=== PATIENT | female | born 1940 | race Hispanic/Latino ===

== ENCOUNTER 2018-05-07 13:18 | Observation (INO) | payer MEDICARE ==
[~2018-05-07] VITALS: Ht 157.5 cm; Wt 82.1 kg
[2018-05-07] MEDS ORDERED: ONDANSETRON HCL INJ 2 MG/ML VIAL IV ONE (13:45)
[2018-05-07] MEDS ORDERED: NITROGLYCERIN 2% OINT 1 GM PKT TOP ONE (13:45)
[2018-05-07] MEDS ORDERED: ALBUTEROL SULF 0.083% NEB SOLN 3 ML NEB NEB STA (13:48)
[2018-05-07] MEDS ORDERED: ASPIRIN 325 MG TAB PO ONE (14:00)
[2018-05-07] MEDS ORDERED: FAMOTIDINE 20 MG TAB PO SCH (14:45)
[2018-05-07] MEDS ORDERED: ONDANSETRON HCL INJ 2 MG/ML VIAL IV PRN (14:45)
[2018-05-07] MEDS ORDERED: MORPHINE SULFATE 2 MG/ML SYR IV PRN (14:45)
[2018-05-07] MEDS ORDERED: ENOXAPARIN SODIUM INJ 100 MG/ML SYR SC ONE (14:45)
[2018-05-07] MEDS: METOPROLOL TARTRATE 25 MG TAB PO SCH (16:00)
[2018-05-07] MEDS ORDERED: DEXTROSE 50% SYRINGE 50 ML IV PRN (16:15)
[2018-05-07] MEDS: INSULIN REGULAR, HUMAN 100 UNIT/1 ML 3ML VIAL SQ SCH ×2 (16:30→20:40)
[2018-05-07 18:16] VITALS: BP 155/70
[2018-05-07 19:20] VITALS: BP 158/78
[2018-05-07 19:30] VITALS: BP 158/78
--- NOTE | 2018-05-07 19:57 | Diagnostic Imaging Report ---
Ventilation/perfusion lung scan Clinical Information: 78 F with chest pain an SOB Comparison: None Discussion: Xenon-133 gas 10 mCi was administered via inhalation. Dynamic images of the lungs in the posterior projection were obtained through single breath, equilibrium, and washout phases. Distribution of tracer activity is irregular throughout the lungs. There are no segmental ventilatory defects. Washout of tracer is diffusely delayed with no air trapping. Perfusion images of the lungs were obtained in multiple projections following intravenous administration of 6.5 mCi of Tc-99m MAA. Distribution of tracer is irregular throughout the lungs. The contours of the lungs are well demarcated. There are no segmental perfusion defects of any size. The cardiomediastinal silhouette is unremarkable. Impression: Scan findings represent a VERY LOW probability for acute pulmonary embolic disease based on the PIOPED II criteria. Scan evidence of diffuse parenchymal and/or obstructive lung disease. Signed by: Dr. Heidi Mcconnell M.D. on 05/07/2018 7:53 PM
[2018-05-07 20:01] VITALS: BP 158/78
[2018-05-07 20:48] LABS: CREATINE KINASE MB 0.3 ng/mL (0-5.0)
[2018-05-07] MEDS: SIMVASTATIN 40 MG TAB PO SCH (21:10)
[2018-05-08] VITALS (8 sets, daily range): BP systolic 125–175; BP diastolic 57–91
[2018-05-08] MEDS: METOPROLOL TARTRATE 25 MG TAB PO SCH ×2 (01:23→14:45)
[2018-05-08] MEDS ORDERED: GABAPENTIN400 MG PO (01:55)
[2018-05-08] MEDS ORDERED: FUROSEMIDE40 MG PO (01:55)
[2018-05-08] MEDS ORDERED: POTASSIUM CHLO20 ME1 PO (01:55)
[2018-05-08] MEDS ORDERED: GLYCOPYRROLATE1 MG PO (01:55)
[2018-05-08] MEDS ORDERED: LATANOPROST2.5 ML OP (01:55)
[2018-05-08] MEDS ORDERED: ATORVASTATIN CA20 MG PO (01:55)
[2018-05-08] MEDS ORDERED: PROAIR HFA INH8.5 GM (01:55)
[2018-05-08] MEDS ORDERED: ASPIR 8181 MG PO (01:55)
[2018-05-08] MEDS ORDERED: LISINOPRIL10 MG PO (01:55)
[2018-05-08] MEDS ORDERED: SYMBICORT 80-10.2 GM INH (01:55)
[2018-05-08] MEDS ORDERED: RANITIDINE HCL150 MG PO (01:55)
[2018-05-08] MEDS ORDERED: GLIMEPIRIDE2 MG PO (01:55)
[2018-05-08] MEDS ORDERED: CARVEDILOL12.5 MG PO (01:55)
[2018-05-08] MEDS ORDERED: CILOSTAZOL100 MG PO (01:55)
[2018-05-08] MEDS ORDERED: METFORMIN HCL500 MG PO (01:55)
[2018-05-08 04:43] LABS: CHOL/HDL RATIO 2.2 (3.0-3.6); CHOLESTEROL 95 MD/DL (0-199); CREATINE KINASE 60 IU/L (29-168); HDL CHOLESTEROL 44 MG/DL (40-60)
[2018-05-08 04:55] LABS: LDL CHOLESTEROL 41 MG/DL (60-130); TRIGLYCERIDES 51 MG/DL (0-149)
--- NOTE | 2018-05-08 06:50 | Diagnostic Imaging Report ---
EXAMINATION: CHEST SINGLE (PORTABLE) INDICATION: Shortness of breath COMPARISON: B every scan on 05/07/2018 FINDINGS: TUBES and LINES: None. LUNGS: Lungs are not well inflated. There are bibasilar atelectasis. There is mild prominence of the central pulmonary vasculature, consistent with pulmonary venous congestion. Interlobular septi thickening present. PLEURA: No pleural effusion or pneumothorax. HEART AND MEDIASTINUM: Cardiac size is moderately enlarged. The aorta is ectatic with atherosclerotic calcifications. BONES AND SOFT TISSUES: No acute osseous lesion. Soft tissues are unremarkable. UPPER ABDOMEN: No free air under the diaphragm. IMPRESSION: Findings are compatible with cardiogenic mild pulmonary edema. Signed by: Dr. Medhat Marin M.D. on 05/08/2018 6:47 AM
[2018-05-08] MEDS ORDERED: FLUTICASONE PRO16 GM NS (07:27)
[2018-05-08] MEDS: INSULIN REGULAR, HUMAN 100 UNIT/1 ML 3ML VIAL SQ SCH ×4 (07:30→20:44)
[2018-05-08] MEDS: ASPIRIN 325 MG TAB EC PO SCH (09:00)
[2018-05-08] MEDS ORDERED: ALBUTEROL SULFATE HFA 8GM INHALATION AEROSOL INH SCH (15:15)
[2018-05-08] MEDS: LISINOPRIL 10 MG TAB PO SCH (17:17)
[2018-05-08] MEDS: SIMVASTATIN 40 MG TAB PO SCH (20:44)
[2018-05-09] VITALS: BP 150/65
--- NOTE | 2018-05-09 01:38 | Consultation ---
DATE OF CONSULTATION: May 08, 2018 CARDIOLOGY CONSULTATION REASON FOR CONSULT: Chest pain. CHIEF COMPLAINT: Pressure in the chest and shortness of breath. HPI: A 78-year-old female with history of hypertension, hyperlipidemia, diabetes, who was sent to the emergency room after being seen at [facility] for pressure in the chest and shortness of breath. Patient says that she had some pressure in the middle of her chest and some shortness of breath. She felt like it was related to her asthma, lasting for several minutes to an hour. No associated symptoms. No nausea, vomiting or diaphoresis. No syncope, no prior history of ID or CAD. No prior history of heart failure. Patient gets her care at [facility] and is followed by primary care doctor, as well as a knapsack sprayer over there. She says that her knapsack sprayer told her that her heart is functioning normally. Her son is present with her at bedside and also helped contribute to the history. REVIEW OF SYSTEMS: Review of systems is negative other than what is stated in the HPI. PAST MEDICAL HISTORY: Hypertension, hyperlipidemia, diabetes, and asthma. SOCIAL HISTORY: Patient denies smoking, drinking or using illicit drugs. FAMILY HISTORY: No family history of heart problems or coronary artery disease. EXAM VITALS: Temperature 97.4. Pulse 66. Respiratory rate 20. Blood pressure 175/79. Satting 97% on room air. EYES: Conjunctivae clear. EARS, NOSE, MOUTH, AND THROAT: Normal mucosa. No pallor or bleeding. NECK: No jugular venous distention. MUSCULOSKELETAL: Normal muscle tone and strength. No atrophy or abnormal movements. EXTREMITIES: No clubbing or cyanosis. SKIN: No venostasis changes or ulcers. GENERAL: Well-developed, well-nourished, obese female. CARDIOVASCULAR: PMI nondisplaced. Regular heart tones S1 and S2. No murmur rubs or gallop. Normal carotid pulses. Palpable femoral pulses, palpable pedal pulses. Trace peripheral ankle edema and varicosities on the shins. RESPIRATORY: No respiratory distress. Lungs are clear to auscultation bilaterally. ABDOMEN: Soft, nontender. No masses, no hepatosplenomegaly. NEURO AND PSYCH: Patient is alert and oriented to person, place, and time. Displays a normal affect. MEDICATIONS: Patient is on 1. Aspirin 81. 2. Atorvastatin 80 mg daily. 3. Carvedilol 6.25 mg b.i.d. 4. Furosemide 40 mg daily. 5. Lisinopril 5 mg daily. 6. Potassium 10 mg daily at home. LABS: All labs reviewed, notable for negative cardiac enzymes times 2 sets. IMAGING: Reviewed. Chest x-ray shows mild pulmonary edema. V/Q scan is normal. EKG reviewed, no significant ST-T changes concerning for ischemia. TELEMETRY: Reviewed shows normal sinus rhythm. ASSESSMENT 1. Chest pain. 2. Hypertensive urgency. PLAN: Patient has been ruled out for acute ID. I reviewed her echocardiogram in detail, shows normal LV function with age-appropriate impaired relaxation. There is no evidence of significant valvular abnormalities. At this time, recommend reviewing her home medications for her blood pressure and if her blood pressure is better controlled, patient may be discharged home, to be followed up with her [place] knapsack sprayer as an outpatient. Thank you for the consult. Will continue to follow while the patient is in the hospital. Job#: [id number] [place]
[2018-05-09 04:00] VITALS: BP 126/59
[2018-05-09] MEDS ORDERED: BUDESONIDE/FORMOTEROL FUMARATE 80/4.5MCG 6.9 GM INH AEROSOL IH SCH (06:00)
[2018-05-09] MEDS: INSULIN REGULAR, HUMAN 100 UNIT/1 ML 3ML VIAL SQ SCH (07:30)
[2018-05-09 07:45] VITALS: BP 161/79
[2018-05-09 08:00] VITALS: BP 161/79
[2018-05-09] MEDS: ASPIRIN 325 MG TAB EC PO SCH (09:00)
[2018-05-09] MEDS ORDERED: FUROSEMIDE 40 MG TAB PO SCH (09:00)
[2018-05-09] MEDS ORDERED: GLIMEPIRIDE 2 MG TAB PO SCH (09:00)
[2018-05-09] MEDS: LISINOPRIL 10 MG TAB PO SCH (09:00)
[2018-05-09] MEDS ORDERED: POTASSIUM CHLORIDE 20 MEQ TAB CR PO SCH (09:00)
[2018-05-09] MEDS ORDERED: CARVEDILOL 3.125 MG TAB PO SCH (09:00)
[2018-05-09 12:00] VITALS: BP 136/76
--- NOTE | 2018-05-09 19:39 | Discharge Summary ---
HISTORY: Patient is a 78-year-old female who was admitted for chest pains. Patient afterwards was feeling better. Today, no chest pains are present. She has a history of diabetes mellitus, hypertension, CVA in the past, and hyperlipidemia as well. DISCHARGE PHYSICAL EXAM GENERAL: Alert and cooperative. VITAL SIGNS: Afebrile, pulse 66, blood pressure 136/76, respiratory rate 18, and oxygen saturation 98 on room air. HEENT: Atraumatic. NECK: No tenderness. LUNGS: Clear. HEART: No heart murmur. ABDOMEN: Soft. EXTREMITIES: Some pedal edema. LABORATORY DATA: In terms of labs, the lipid profile was unremarkable. The CBC was unremarkable. Chemistry was unremarkable as well. As reported, patient did very well without any further complaints of chest pain. The initial electrocardiogram, there was sinus rhythm and there was a poor progression of the R waves in the anteroseptal wall. The rest was unremarkable. So as reported, the patient was doing fine and she is being discharged in a fair condition. FINAL DIAGNOSES 1. Chest pain. 2. Mild persistent bronchial asthma. 3. Diabetes mellitus. 4. Hypertension. DISCHARGE MEDICATIONS: In terms of medication, to continue with simvastatin 40 daily and aspirin. She is on Humulin, Coreg 3.125 daily. At home, she was on Amaryl 2 mg daily, lisinopril 10 mg daily, and she has been on Lasix as well. BAILEY RILEY MD Job#: [id number] STEFF
== END 2018-05-09 12:52 | disposition home or self-care (01) ==
LOC: FSED 13:18 → ERHOLD 14:37 → MED/SURG3 17:40
PROVIDERS: ADMIT Internal Medicine; ATTEND Internal Medicine
DX: R07.9 Chest pain, unspecified (principal); J45.30 Mild persistent asthma, uncomplicated; I10 Essential (primary) hypertension; E11.9 Type 2 diabetes mellitus without complications; E78.5 Hyperlipidemia, unspecified; Z86.73 Personal history of transient ischemic attack (TIA), and cerebral infarction without residual deficits; I16.0 Hypertensive urgency
CPT/HCPCS: 36415 ×3; 71045; 71046; 78582; 80053; 80061; 81003; 82550 ×2; 82553 ×2; 82948 ×2; 83880; 84484 ×2; 85025; 85379; 85610; 93306; 94640; 99284; A9540; A9558; G0378 ×3; J1650; J2405